=== PATIENT | female | born 1975 | race Caucasian/White ===

== ENCOUNTER 2025-07-25 11:38 | Outpatient (REF) | payer MEDICAID, SELFPAY ==
--- OUTSIDE RECORDS SUMMARY | 2024-02-02 04:00 | XMS_ITS ---
Author Organization [facility]- CORPORATE Address [facility] [address] [place], [place] [id number] Care Team Providers Care Intensive Care Anaesthetist Name Role Phone Natalia GONCALVES, Maycol Primary Care Provider Derian Avila Unavailable [phone] REASON FOR VISIT RFA - Right GSV Encounters Encounter Location Date Provider Diagnosis [facility] [address] [place], [place] [id number] 02/02/2024 Goldie Larry Plan Of Treatment No Information Progress Notes * Ginna PEREZ MDOB:1975 ( 50 yo F)Acc No.[id number]:02/02/2024 Patient: Ginna Vazquez Provider: Goldie Hooper MD :1975 A ge:48 Y S ex:Female Date:02/02/2024 Address:[address] [place] [id number] Pcp:Maycol Fisher MD Subjective: * Chief Complaints: * R FA - Right GSV * Electronic signature of Derian Larry MD on 07/25/2025 at 11:44 AM EST Sign off status: Pending * Provider: Goldie Hooper MD Date: 0 02/02/2024 Generated for Lyni ng/Faawag/eTransmitting on: 1 09/25/2024 11:44 AM EST
--- OUTSIDE RECORDS SUMMARY | 2024-02-09 04:00 | XMS_ITS ---
Author Organization [facility]- CORPORATE Address [facility] [address] [place], [place] [id number] Care Team Providers Care Sheet Metal Former Name Role Phone Natalia GONCALVES, Maycol Primary Care Provider Derian Avila Unavailable [phone] REASON FOR VISIT RFA - Right SSV, U/S - F/U Right GSV Encounters Encounter Location Date Provider Diagnosis [facility] [address] [place], [place] [id number] 02/09/2024 Goldie Larry Plan Of Treatment No Information Progress Notes * Ginna PEREZ MDOB:1975 ( 50 yo F)Acc No.[id number]:02/09/2024 Patient: Ginna Vazquez Provider: Goldie Hooper MD :1975 A ge:48 Y S ex:Female Date:02/09/2024 Address:[address] [place] [address], [id number] Pcp:Mayocl Fisher MD Subjective: * Chief Complaints: * R FA - Right SSV U/S - F/U Right GSV * Electronic signature of Derian Larry MD on 07/25/2025 at 11:45 AM EST Sign off status: Pending * Provider: Goldie Hooper MD Date: 0 02/09/2024 Generated for Printi ng/Faxing/eTransmitting on: 1 09/25/2024 11:45 AM EST
--- OUTSIDE RECORDS SUMMARY | 2024-03-27 03:15 | XMS_ITS ---
Author Organization [facility]- CORPORATE Address [address] [facility] [address] [place], [place] [id number] Care Team Providers Care Assembly Worker Name Role Phone Maycol Fisher MD Primary Care Provider Marjorie Joshi Unavailable [phone] REASON FOR VISIT Ultrasound Guided Sclerotherapy left lower extremity (medial) Encounters Encounter Location Date Provider Diagnosis [place] [facility] [address] [place], [place] [id number] 03/27/2024 Sayda Niño Plan Of Treatment No Information Progress Notes * Ginna PEREZ MDOB:1975 ( 50 yo F)Acc No.[id number]:03/27/2024 Patient: Ginna Vazquez Provider: MIKE Clay :1975 A ge:48 Y S ex:Female Date:03/27/2024 Address:[address] [place] [address], [place] [facility], [id number] Pcp:Maycol Fisher MD Subjective: * Chief Complaints: * U ltrasound Guided Sclerotherapy left lower extremity (medial) * Electronic signature of Julianne Niño APRN on 07/25/2025 at 11:45 AM EST Sign off status: Pending * Provider: MIKE Clay Date: 0 03/27/2024 Generated for Godfrey ng/Faxing/eTransmitting on: 1 09/25/2024 11:45 AM EST
--- OUTSIDE RECORDS SUMMARY | 2024-04-27 10:30 | XMS_ITS ---
Author Organization [facility]- CORPORATE Address [address] [facility] [address] [place], [place] [phone] Care Team Providers Care Director Retail Brand Development Name Role Phone Natalia GONCALVES, Maycol Primary Care Provider Derian Avila Unavailable [phone] REASON FOR VISIT Ultrasound Guided Sclerotherapy left lower extremity (medial) Encounters Encounter Location Date Provider Diagnosis [place] [facility] [address] [place], [place] [phone] 04/27/2024 Goldie Larry Plan Of Treatment No Information Progress Notes * Ginna PEREZ MDOB:1975 ( 50 yo F)Acc No.[id number]:04/27/2024 Patient: Ginna Vazquez Provider: Goldie Hooper MD :1975 A ge:48 Y S ex:Female Date:04/27/2024 Address:[address] [place] [address], [facility], [id number] Pcp:Maycol Fisher MD Subjective: * Chief Complaints: * U ltrasound Guided Sclerotherapy left lower extremity (medial) * Electronic signature of Derian Larry MD on 07/25/2025 at 11:44 AM EST Sign off status: Pending * Provider: Goldie Hooper MD Date: 0 04/27/2024 Generated for Printi ng/Faxing/eTransmitting on: 1 09/25/2024 11:44 AM EST
--- OUTSIDE RECORDS SUMMARY | 2025-07-25 11:15 | XMS_ITS | Encounter Summary ---
Author Organization [employer] Address [address] [place] [address] 7 [place] [address] Care Team Providers Care Print Operator Name Role Phone Diya Decker NP Primary Care Provider [phone] Reason for Referral * Consultation (Routine) - Authorized Specialty Diagnoses / Procedures Referred By Judy alfonso Referred To Contact Nutrition Diagnoses Pre-diabetes Godwin Olmos CNP [address] [place] [address] Phone: tel: fax: Referral ID Status Reason Start Date Expiration Date Visits Requested Visits Authorized [id number] Authorized Consult and Treat 07/25/2025 07/25/2026 1 1 Encounter Details Date Type Department Care Team ([facility] st Contact Info) Description 07/25/2025 11:15 AM EST Office Visit [facility] [address] [place] [address] Godwin Olmos CNP [address] [place] [address] Pre-diabetes (Primary Dx) Social History Tobacco Use Types Packs/Day Years Used Date Smoking Tobacco: Every Day Cigarettes Smokeless Tobacco: Never Housing Stability Answer Date Recorded What is your housing situation today? I have nikolai connell 06/08/[address] you li ve. Do you have problems with any of the following? None of the above 06/08/2025 Food Insecurity Answer Date Recorded Within the past 12 months, y ou worried that your food would run out before you got money to buy more: Never True 06/08/2025 Within the past 12 months,th e food you bought just didn't last and you didn't have enough money to get more: Never True 01/2025 Transportation Answer Date Recorded In the past 12 months, has l ack of transportation kept you from medical appts, meetings, work or from getting things needed for daily living? No 06/08/2025 Utilities Answer Date Recorded In the past 12 months, has t he electric, gas, oil or water company threatened to shut off services in your home? No 06/08/2025 Internet Access Answer Date Recorded Internet Access Q1 Yes 06/08/2025 Internet Access Q2 Not on file 06/08/2025 Comments Unknown Sex and Gender Information Value Date Recorded Sex Assigned at Female 03/23/2025 9:30 AM EDT Legal Sex Female 2:32 AM EDT Gender Identity Female 03/23/2025 9:30 AM EDT Sexual Orientation Straight 03/23/2025 9: 30 AM EDT documented as of this encounter Last Filed Vital Signs Vital Sign Reading Time Taken Comments Blood Pressure 120/74 07/25/2025 11:10 AM EST Pulse 68 07/25/2025 11:10 AM EST Temperature 36.2 C (97.1 F) 07/25/2025 11:10 AM EST Respiratory Rate 12 07/25/2025 11:10 AM EST Oxygen Saturation 97% 07/25/2025 11:10 AM EST Inhaled Oxygen Concentration - - Weight 67.6 kg (149 lb) 07/25/2025 11:10 AM EST Height 157.5 cm (5' 2 ) 07/25/2025 11:10 AM EST Body Mass Index 27.25 07/25/2025 11:10 AM EST documented in this encounter Plan of Treatment Scheduled Orders Name Type Priority Associated Diagnoses Order Schedule POCT glucose manually resulted ([id number]) Point of Care Testing Routine Pre-diabetes Ordered: 07/25/2025 Lipid Panel, Standard Lab Routine Pre-diabetes Expected: 07/25/2025 (Approximate), Expires: 07/25/2026 Comprehensive Metabolic Panel Lab Routine Pre-diabetes Expected: 07/25/2025 (Approximate), Expires: 07/25/2026 CBC auto differential Lab Routine Pre-diabetes Expected: 07/25/2025 (Approximate), Expires: 07/25/2026 Hemoglobin A1c Lab Routine Pre-diabetes Expected: 07/25/2025 (Approximate), Expires: 07/25/2026 Scheduled Referrals Name Type Priority Associated Diagnoses Orde r Schedule Referral to Nutrition Therapy Outpatient Referral Routine Pre-diabetes Expected: 07/25/2025 (Approximate), Expires: 07/25/2026 documented as of this encounter Visit Diagnoses Diagnosis Pre-diabetes- Primary Other abnormal glucose documented in this encounter Care Teams Print Operator Relationship Specialty Start Date End Date Diya Decker NP [address] [place] [address] PCP - General Family Medicine 07/23/25 documented as of this encounter
--- OUTSIDE RECORDS SUMMARY | 2025-07-25 11:45 | XMS_ITS | Encounter Summary ---
Author Organization [employer] Address [address] [facility] [address] [address] [place] [address] Care Team Providers Care Upholstery Parts Sorter Name Role Phone Diya Decker NP Primary Care Provider [phone] Reason for Visit * Reason Comments Med Refill Encounter Details Date Type Department Care Team ([facility] st Contact Info) Description 06/18/2025 Refill [facility] [address] [place], [place] [phone] Diya Decker NP [address] [place], [place] [phone] Social History Tobacco Use Types Packs/Day Years [...] AM EDT documented as of this encounter Plan of Treatment Not on file documented as of this encounter Visit Diagnoses Not on filedocumented in this encounter Care Teams Upholstery Parts Sorter Relationship Specialty Start Date End Date Diya Decker NP [address] [place] [address] PCP - General Family Medicine 07/23/25 documented as of this encounter
--- OUTSIDE RECORDS SUMMARY | 2025-07-25 11:45 | XMS_ITS | Encounter Summary ---
Author Organization [employer] Address [address] [facility] 7t [place] [address] Care Team Providers Care Business Continuity Planner Name Role Phone Diya Decker KARLA Primary Care Provider [phone] Encounter Details Date Type Department Care Team (Latest Contact Info) Description 07/23/2025 Travel Social History Tobacco Use Types Packs/Day Years [...] on filedocumented in this encounter Care Teams Business Continuity Planner Relationship Specialty Start Date End Date Diya Decker NP [address] [place] [address] PCP - General Family Medicine 07/23/25 documented as of this encounter
--- OUTSIDE RECORDS SUMMARY | 2025-07-25 11:45 | XMS_ITS | Encounter Summary ---
Author Organization [employer] Address [address] 7[address] [place] [address] Care Team Providers Care Payment Manager Name Role Phone Diya Decker NP Primary Care Provider [phone] Reason for Visit * Reason Comments Med Refill Encounter Details Date Type Department Care Team ([facility] st Contact Info) Description 07/15/2025 Refill [facility] [address] [place], [place] [phone] Diya Decker NP [address] [place], [place] [phone] Social History Tobacco Use Types Packs/Day Years [...] on filedocumented in this encounter Care Teams Payment Manager Relationship Specialty Start Date End Date Diya Decker NP [address] [place] [address] PCP - General Family Medicine 07/23/25 documented as of this encounter
--- OUTSIDE RECORDS SUMMARY | 2025-07-25 11:45 | XMS_ITS | Encounter Summary ---
Author Organization [employer] Address [address] [facility] 7t [place] [address] Care Team Providers Care Net Software Engineer Name Role Phone Diya Decker NP Primary Care Provider [phone] Reason for Visit * Reason Onset Date Comments Nurse Triage 07/23/2025 Encounter Details Date Type Department Care Team ([facility] st Contact Info) Description 07/23/2025 Telephone [facility] [address] [place], [place] [phone] Diya Decker, KARLA [address] [place] [address] Nurse Triage Social History Tobacco Use Types Packs/Day Years [...] AM EDT documented as of this encounter Miscellaneous Notes * Telephone Encounter - Zena Capps RN - 07/23/2025 3:55 PM EST Tc to pt via S ID: [id number] to triage pt for c/o of high blood sugar. Pt reports that when they wake up first thing in the morning their BS is low but when they eat something after it goes back up. Pt reports when their BS is low they experience sweating, hot flashes and trembling. Pt deniesshortness of breath, nausea, vomiting and frequent urination. Pt reports when they lived in [place], they were diagnosed with DM. Pt advised on our end we only have them as a pre-diabetic. Pt advisedwhen their sugar is low they'll either have candy or sandwich, pancakes or corn flakes. Pt reports that the only juice they drink is apple juice but denies smoking or drinking alcohol. Radiology Clerk discussed with pt about premenopausal and pt reports their LMP was last month but does not think they will get another menstrual cycle. Pt advised of s/sx of menopause. Pt advised to avoid skipping meals. Ptoffered a sick on site appointment with Godwin Olmos NP at [facility]. PT given address and appointment time. Pt advised to continue check their BS daily and document the readings and bring to their a ppointment. Pt verbalized understanding and agrees with plan. Protocol Used: Diabetes - High Blood Sugar (Adult) Protocol-Based Disposition: See in Office or Video Visit Today Video visit offer not recorded Positive Triage Questions: * Patient wants to be seen * Blood glucose 70 - 240 mg/dL (3.9 -13.3 mmol/L) * All higher-acuity triage questions were negative. Care Advice Discussed: * High Blood Sugar (Hyperglycemia) * Measure and Record Your Blood Glucose * Telephone Encounter - Pawel Aditya - 07/23/2025 1:15 PM EST Symptom: High Blood Sugar - Caller Reports Outcome: Schedule a same-day appointment or talk to a nurse or provider today Reason: Caller denied all higher acuity questions Please contact pt at [phone]. (Ukrainian Speaker) documented in this encounter Plan of Treatment Not on file documented as of this encounter Visit Diagnoses Not on filedocumented in this encounter Care Teams Net Software Engineer Relationship Specialty Start Date End Date Diya Decker NP [address] [place] [address] PCP - General Family Medicine 07/23/25 documented as of this encounter
--- OUTSIDE RECORDS SUMMARY | 2025-07-25 11:45 | XMS_ITS | Encounter Summary ---
Author Organization [employer] Address [address] [facility] 7t [place] [address] Care Team Providers Care Pc Network Technician Name Role Phone Diya Decker KARLA Primary Care Provider [phone] Encounter Details Date Type Department Care Team (Latest Contact Info) Description 07/25/2025 Travel Social History Tobacco Use Types Packs/Day [...] on filedocumented in this encounter Care Teams Pc Network Technician Relationship Specialty Start Date End Date Diya Decker NP [address] [place] [address] PCP - General Family Medicine 07/23/25 documented as of this encounter
--- OUTSIDE RECORDS SUMMARY | 2025-07-25 11:45 | XMS_ITS | Patient Health Record ---
Author Organization [facility]- CORPORATE Address [address] [facility] [address] [place], [place] [address] Care Team Providers Care Heavy Equipment Operator Name Role Phone Maycol Fisher MD Primary Care Provider Unavailabl e Allergies Allergen (clinical drug ingredient) Drug/Non Drug Allergy documented on EMR Reaction Allergy Type Onset Date Status Penicillin Unknown Drug Allergy Active Reason For Referral No Information Medications Medication SIG (Take, Route, Frequency, Duration) Notes Start Date End Date Status Ventolin HFA 108 (90 Base) MCG/ACT Aerosol Solution Inhalation; Duration: 25 Unknown Loratadine 10 MG Tablet TAKE 1 TABLET BY MOUTH 1 TIME EACH DAY. Oral; Duration: 30 Unknown Pantoprazole Sodium 40 MG Tablet Delayed Release Oral; Duration: 30 Unknown Escitalopram Oxalate 20 MG Tablet Oral; Duration: 30 Unknown hydrOXYzine Pamoate 50 MG Capsule Oral; Duration: 30 Unknown Albuterol Sulfate 1.25 MG/3ML Nebulization Solution Inhalation; Duration: 5 Unkn own Omeprazole 40 MG Capsule Delayed Release Oral; Duration: 30 Unknow n predniSONE 20 MG Tablet TAKE 2 TABLETS B Y MOUTH EVERY DAY FOR 4 DAYS Oral; Duration: 4 Unknown Social History Tobacco Use: Social History Observation Description Date Details (start date - stop date) Never Smoker NA - NA Social History Drugs/Alcohol: Social Info Question Answer Notes Alcohol Screen (Audit-C) Did you have a drink containing alcohol in the past year? Yes How often did you have a drink containing alcohol in the past year? Monthly or less (1 point) How many drinks did you have on a typical day when you were drinking in the past year? 3 or 4 drinks (1 point) How often did you have 6 or more drinks on one occasion in the past year? Never (0 point) Points 2 Interpretation Negative Tobacco Use: Social Info Question Answer Notes Tobacco Use/Smoking Are you a nonsmoker Problems Problem Type SNOMED Code ICD Code Onset Dates Problem Status W/U Status Risk Notes Problem Varicose veins of lower extremity (10690152) Varicose veins of right lower extremity with other complications (I83.891) Active confirmed Problem Varicose veins of bilateral lower limbs (76022332314 869023) Varicose veins of bilateral lower extremities with other complications (I83.893) Active confirmed Venous DUS BLE demonstrates reflux. No DVT, Order RFA for treatment of refluxing axial veins. Order Scerlotherapy for remnant axial veins and tributary veins. The patient has signs and symptoms of venous insufficiency affecting activities of daily living. Patient continues to remain symptomatic despite conservative therapy of at least 6 weeks such as: wearing 20-30 mmHg compression stockings, leg elevation, avoiding prolonged immobility, exercise program of calf muscle pumping activity, weight reduction and management, and taking analgesics and/or NSAIDS. Therefore, will proceed with treatment of incompetent vein(s). Problem Varicose veins of left lower limb (07421666600 252062) Varicose veins of left lower extremity with other complications (I83.892) Active confirmed Problem Varicose veins of lower extremity (67495746) .Varicose veins of left lower extremity with complications (I83.892) Active confirmed Plan Of Treatment Pending Test Test Name Order Date .RFA Left GSV 10/16/2022 .Post Ablation LEV Insufficiency DUS Rik ateral 11/16/2022 .Varithena Left AASV (65251) 11/27/2022 .RFA Right GSV 01/27/2024 .RFA Right SSV 02/02/2024 .LEV Patency DUS Right 02/11/2024 Future Test Test Name Order Date .UGFS left lower extremity (medial) 12/31 .Auth DUS Left 01/17/2024 .Post Ablation LEV Insufficiency DUS Rig ht 02/02/2024 Insurance Providers Payer Name Payer Address Payer Phone Subscriber Number Group Number Insured Name Patient Relationship to Insured Coverage Start Date Coverage End Date [facility] [address] [address] [place] [address] [id number] [id number] Ginna Johnson Self - patient is the insured 08/01/202 3 Medical (General) History Medical History History ICD Code Arthritis diabetes high cholesterol asthma Surgical History Surgery Date(Month/Year) hernia repair
--- OUTSIDE RECORDS SUMMARY | 2025-07-25 11:45 | XMS_ITS | Clinical Summary ---
Author Organization [employer] Address [address] [facility] [address] [place] [address] Care Team Providers Care Cytogenetics Technologist Name Role Phone DonnieDiya hoff KARLA Primary Care Provider [phone] Allergies Active Allergy Reactions Criticality Noted Date Comments Penicillins 03/23/2025 Medications pantoprazole (Protonix) 40 MG EC tabletIndication s:Gastroesophage al reflux disease with esophagitis without hemorrhage Take 1 tablet (40 mg) by mouth Once per day. Do not crush, chew, or split. 30 tablet 1 5 03/23/20 Active atorvastatin (Lipitor) 80 MG tablet Take 1 tablet (80 mg) by mouth Once per day. 30 tablet 03/23/20 Active albuterol 108 (90 Base) MCG/ACT inhaler Inhale 2 puffs every 6 (six) hours if needed for wheezing. 18 g 5 03/23/20 Active ergocalciferol (Drisdol) 1.25 MG (12075 UT) capsule Take 1 capsule (1.25 mg) by mouth 1 (one) time per week. 4 capsule 5 03/23/20 Active mirtazapine (Remeron) 15 MG tablet Take 1 tablet (15 mg) by mouth at bedtime. 30 tablet 5 03/23/20 Active gabapentin (Neurontin) 300 MG capsule Take 1 capsule (300 mg) by mouth 3 times daily. 90 capsule 5 03/23/20 Active budesonide-formo terol (Symbicort) 160-4.5 MCG/ACT inhaler Inhale 2 puffs in the morning and at bedtime. Rinse mouth with water after use to reduce aftertaste and incidence of candidiasis. Do not swallow. 1 each 11 5 03/23/20 26 Active escitalopram (Lexapro) 20 MG tablet Take 1 tablet (20 mg) by mouth Once per day. 30 tablet 2 5 Active fluticasone (Flonase) 50 MCG/ACT nasal spray SPRAY 1 TO 2 SPRAYS INTO EACH NOSTRIL ONCE PER DAY. SHAKE GENTLY. BEFORE FIRST USE, PRIME PUMP. AFTER USE, CLEAN TIP AND REPLACE CAP. 48 mL 5 Active SUMAtriptan (Imitrex) 25 MG tablet TAKE 1 TABLET (25 MG) BY MOUTH 1 (ONE) TIME IF NEEDED FOR MIGRAINE FOR UP TO 1 DOSE. MAY REPEAT DOSE ONCE IN 2 HOURS IF NO RELIEF. DO NOT EXCEED 2 DOSES IN 24 HOURS. 9 tablet 5 Active hydrOXYzine pamoate (Vistaril) 50 MG capsule TAKE 1 CAPSULE BY MOUTH AT BEDTIME NEEDED FOR ANXIETY (INSOMNIA) 90 capsule 5 Active Active Problems Problem Noted Date Diagnosed Date Moderate asthma 03/23/2025 Assessment & Plan (03/23/2025 12:16 PM EDT): Renewed inahlers Gastroesophageal reflux dise ase with esophagitis without hemorrhage 03/23/2025 Assessment & Plan (03/23/2025 12:15 PM EDT): Refill given until able to establish with pcp Hyperlipidemia 03/23/2025 Assessment & Plan (03/23/2025 12:15 PM EDT): Titrate up to full tablet renew meds outside labs reviewe d Chronic migraine with aura w ithout status migrainosus, not intractable 03/23/2025 PTSD (post-traumatic stress disorder) 03/23/2025 Assessment & Plan (03/23/2025 12:16 PM EDT): Prn meds renewed, Upcoming visit with psychiatry Anxiety 03/23/2025 Assessment & Plan (03/23/2025 12:16 PM EDT): Resume lexapro at 0.5 tablet for 1 week, titrate up to 1 tablet Gabapentin start with one tablet nightly for 1 week, may increase by 1 tablet weekly until taking and tolerating up to 3 tablets day Tobacco dependence 03/23/2025 Overview (03/23/2025): Pt motivated to stop declines pharmacology today Encounters Date Type Department Care Team Description 07/25/2025 11:15 AM EST Office Visit [facility] [address] [place] [address] Godwin Olmos CNP Pre-diabetes (Primary Dx) 07/25/2025 Travel 07/23/2025 Travel 07/23/2025 Telephone [facility] [address] [place] [id number] Diya eDcker NP Nurse Triage 07/15/2025 Refill [facility] [address] [place] [phone] Diya Decker NP 06/18/2025 Refill [facility] [address] [place] [id number] Diya Decker NP 06/14/2025 Telephone [facility] [address] [place] [id number] Diya Decker NP Chart Prep 06/08/2025 Patient Outreach [facility] [address] [place] [address] Diya Decker NP Pre-visit Planning (SDOH negative, Tobacco screening positive. ) 2025 Refill [facility] [address] [place] [id number] Diya Decker NP 05/04/2025 Population Health Risk Score [facility] [address] [place] [id number] Provider, Population Health Generic from Last 3 Months Social History Tobacco Use Types Packs/Day Years Used Date Smoking Tobacco: Every Day Cigarettes Smokeless Tobacco: Never Tobacco Cessation:Ready to Q uit: Not Asked; Counseling Given: Not Answered Housing Stability Answer Date Recorded What is [...] Orientation Straight 03/23/2025 9: 30 AM EDT Last Filed Vital Signs Vital Sign Reading [...] Mass Index 27.25 07/25/2025 11:10 AM EST Plan of Treatment Health Maintenance Due Date Last Done Comments CT Colonography 1975 Colonoscopy 1975 Colorectal Cancer Screening 1975 Depression Screening 1975 FIT DNA/Cologuard 1975 FIT 1975 FOBT 1975 HIV Screening 1975 Lipid Panel 1975 Sigmoidoscopy 1975 Alcohol/Substance Use Screening 1987 Family Planning (PISQ) 1990 Hepatitis C Screening 1993 DTaP/Tdap/Td Vaccines (1 - Tdap) 1994 Hepatitis B Vaccines (1 of 3 - 19+ 3-dose series) 1994 Pneumococcal Vaccine: 50+ Years (1 of 2 - PCV) 1994 Pap Smear 1996 Cervical Cancer Screening 2005 HPV/Cotest 2005 Mammogram 2015 COVID-19 Vaccine (1 - 2024-2 6 season) 2025 RSV Patients and Patients Aged 60 years or older (1 - Risk 50-74 years 1-dose series) 2025 Zoster Vaccines (1 of 2) 2025 Tobacco Screening 03/23/2026 03/23/2025 SDOH Screening 06/08/2026 06/08/2025 Disability Screening 07/23/2026 07/23/2025 Influenza Vaccine Completed 05/23/2025, 05/29/2024, 07/21/2023 HIB Vaccines Aged Out No longer eligi ble based on patient's age to complete this topic HPV Vaccines Aged Out No longer eligi ble based on patient's age to complete this topic Hepatitis A Vaccines Aged Out No long er eligible based on patient's age to complete this topic IPV Vaccines Aged Out No longer eligi ble based on patient's age to complete this topic Meningococcal B Vaccine Aged Out No l onger eligible based on patient's age to complete this topic Meningococcal Vaccine Aged Out No chuy silvestre eligible based on patient's age to complete this topic RSV under 20 months Aged Out No longe r eligible based on patient's age to complete this topic Rotavirus Vaccines Aged Out No longer eligible based on patient's age to complete this topic [place] [place] [address] C3 Care Teams Cytogenetics Technologist Relationship Specialty Start Date End Date Diya Decker NP [address] [place] [phone] PCP - General Family Medicine 07/23/25
[2025-07-25 14:58] LABS: MANUAL DIFF FLAG NO
[2025-07-25 15:15] LABS: Hematocrit 47.7 % (37.0-47.0); Hemoglobin 16.1 g/dl (12.0-16.0); Imm Gran Abs Auto 0.03 X10*3/uL (0.00-0.03); Imm Gran Pct Auto 0.4 % (0.0-0.4); Lymphocytes Absolute Auto 2.7 X10*3/uL (1.2-4.9); Mean Corpuscular HGB Conc 33.8 g/dl (31.0-35.0); Mean Corpuscular Hemoglobin 30.7 pg (27.0-33.0); Mean Corpuscular Volume 90.9 fL (80.0-98.0); NRBC Abs Auto 0.000 X10*3/uL (0.0-0.012); NRBC Pct Auto 0.0 /100WBC (0.0-0.2); Platelet Count 403 X10*3/uL (160-400); Red Blood Count 5.25 X10*6/uL (4.20-5.50); White Blood Count 7.9 X10*3/uL (4.8-10.8)
[2025-07-25 15:38] LABS: Alanine Aminotransferase 15 U/L (0-31); Albumin Level 4.9 g/dL (3.5-5.0); Alkaline Phosphatase 96 U/L (39-117); Anion Gap 14 (12-20); Aspartate Amino Transferase 25 U/L (5-31); Blood Urea Nitrogen 14 mg/dL (9-16); Calcium 9.9 mg/dL (8.4-10.2); Carbon Dioxide 24 mmol/L (22-29); Chloride 106 mmol/L (96-108); Cholesterol 239 mg/dL (<200); Estimated Glomerular Filt Rate > 60; HDL Cholesterol 53 mg/dL (>40); Potassium 4.0 mmol/L (3.3-5.1); Sodium 140 mmol/L (135-145); Total Protein 8.6 g/dL (6.5-8.0); Triglycerides 151 mg/dL (<150)
== END 2025-07-25 11:39 | disposition home or self-care (01) ==
LOC: HO.CHCLDS 11:38
DX: R73.03 Prediabetes (principal)
CPT/HCPCS: 36415; 80053; 80061; 83036; 85025